=== PATIENT | female | born 1965 | race Caucasian/White ===

== ENCOUNTER 2024-03-25 16:41 | Emergency (ER) | payer OTHER ==
[~2024-03-25 16:41] MED LIST: PHENYLEPHRINE 0.5% NOSE 15ML NAS ONE
[2024-03-25] MEDS ORDERED: MORPHINE 4 MG/ML SYR ONE (17:04)
[2024-03-25] MEDS ORDERED: LABETALOL 20 MG/4ML SYRINGE IV ONE (17:04)
[2024-03-25] MEDS ORDERED: ONDANSETRON 4 MG/2 ML VIAL ONE (17:04)
[2024-03-25 17:36] LABS: Absolute Basophils 0.1 K/uL (0-0.5); Absolute Eosinophils 0.1 K/uL (0-0.5); Absolute Lymphocytes (CBC) 2.2 K/uL (0.7-4.9); Absolute Monocytes 0.9 K/uL (0.1-1.3); Absolute Neutrophil 4.1 K/uL (1.8-8.0); Basophils % 1.1 % (0-1.3); Eosinophils % 1.4 % (0-4.4); Hematocrit 45.5 % (36.0-45.0); Hemoglobin 15.4 g/dL (12.0-15.0); Lymphocytes % 29.5 % (15.3-44.8); MCH 29.9 pg (27.0-35.0); MCHC 33.8 g/dL (32.0-36.0); MCV 88.4 fL (80-100); MPV 9.3 fL (7.6-11.3); Monocytes % 11.8 % (3.3-12.3); Neutrophils % 56.2 % (41.7-73.7); Nucleated Red Blood Cells % 0.1 % (0-0); Platelets 187 thou/uL (152-406); RBC Red Blood Cell Count 5.15 M/uL (3.86-4.86); Red Cell Distribution Width 15.9 % (12.1-15.2)
--- NOTE | 2024-03-25 18:03 | ER ---
Nurse's Notes [facility] Name: Naye Berrios Age: 58 yrs Sex: Female : 1965 Arrival Date: 03/25/2024 Time: 16:41 Bed Treatment Private MD: Diagnosis: Epistaxis Presentation: 03/25 16:45 Chief complaint: Patient states: Spontaneous nose bleed started 30 min [employer]. Coronavirus ll1 screen: Client denies travel out of the [place] in the last 14 days. At this time, the client does not indicate any symptoms associated with coronavirus-19. Ebola Screen: Patient denies travel to an Ebola-affected area in the 21 days before illness onset. Initial Sepsis Screen: Does the patient meet any 2 criteria? No. Patient's initial sepsis screen is negative. Does the patient have a suspected source of infection? No. Patient's initial sepsis screen is negative. Risk Assessment: Do you want to hurt yourself or someone else? Patient reports no desire to harm self or others. Onset of symptoms was March 25, 2024. 16:45 Method Of Arrival: Ambulatory ll1 16:45 Acuity: GEORGE 2 ll1 Historical: - Allergies: 16:45 No Known Allergies; ll1 - PMHx: 16:45 Hypertensive disorder; Hypothyroidism; ll1 - PSHx: 16:45 Appendectomy; ll1 - Immunization history:: Adult Immunizations up to date. - Social history:: Smoking status: Patient denies any tobacco usage or history of. Screenin:50 [facility] ED Fall Risk Assessment (Adult) History of falling in the last 3 months, aa5 including since admission No falls in past 3 months (0 pts) Confusion or Disorientation No (0 pts) Intoxicated or Sedated No (0 pts) Impaired Gait No (0 pts) Mobility Assist Device Used No (0 pt) Altered Elimination No (0 pt) Score/Fall Risk Level 0 - 2 = Low Risk Oriented to surroundings, Maintained a safe environment, Educated pt \T\ family on fall prevention, incl call for assistance when getting out of bed. Abuse screen: Denies threats or abuse. Nutritional screening: No deficits noted. Tuberculosis screening: No symptoms or risk factors identified. Assessment: 16:50 General: Appears uncomfortable, Behavior is calm, cooperative. Pain: Denies pain. aa5 Neuro: Level of Consciousness is awake, alert, obeys commands, Oriented to person, place, time, situation. Cardiovascular: Patient's skin is warm and dry. Respiratory: Airway is patent Respiratory effort is even, unlabored, Respiratory pattern is regular, symmetrical. GI: No signs and/or symptoms were reported involving the gastrointestinal system. : No signs and/or symptoms were reported regarding the genitourinary system. EENT: Nares with bleeding noted on left nare. Derm: Skin is pink, warm \T\ dry. Musculoskeletal: Range of motion: intact in all extremities. 17:00 Reassessment: Rapid Rhino was applied to left nare by Dr. Fine, bleeding slowed down aa5 after rapid rhino was inserted with mild bleeding still noted from left nare. . 17:50 Reassessment: Patient is alert, oriented x 3, equal unlabored respirations, skin aa5 warm/dry/pink. MD at bedside, pt appears more comfortable now. Left nare bleeding significantly controlled by rapid rhino. . 18:12 Reassessment: Patient is alert, oriented x 3, equal unlabored respirations, skin aa5 warm/dry/pink. Vital Signs: 16:45 Resp 17; Weight 72.57 kg; Height 5 ft. 6 in. ; ll1 16:48 BP 160 / 108; Pulse 92; Resp 18 S; Pulse Ox 98% on R/A; aa5 17:18 BP 155 / 105; Pulse 79; Resp 19 S; Pulse Ox 98% on R/A; aa5 17:30 BP 141 / 95; Pulse 78; aa5 17:45 BP 143 / 95; Pulse 77; aa5 18:00 BP 140 / 92; Pulse 78; Resp 16 S; Pulse Ox 98% on R/A; aa5 16:45 Body Mass Index 25.82 (72.57 kg, 167.64 cm) ll1 ED Course: 16:42 Patient arrived in ED. hb 16:43 Wero Fine DO is Attending Physician. sb4 16:45 Arm band placed on Patient placed in an exam room, on a stretcher. ll1 16:46 Triage completed. ll1 16:50 Patient has correct armband on for positive identification. Bed in low position. Call aa5 light in reach. Side rails up X2. Adult w/ patient. Pulse ox on. NIBP on. 16:59 Preethi Galindo, RN is Primary Nurse. aa5 17:16 Inserted saline lock: 22 gauge in left wrist, using aseptic technique. Blood collected. aa5 Flushed with 10 mL NS. 17:38 Attending Physician role handed off by Wero Fine DO sp3 17:38 Bladimir Membreno MD is Attending Physician. sp3 17:59 Wero Fine DO is Attending Physician. ms3 18:02 Joslyn Bañuelos MD is Referral Physician. ms3 18:10 No provider procedures requiring assistance completed. IV discontinued, intact, aa5 bleeding controlled, No redness/swelling at site. Pressure dressing applied. Administered Medications: 17:16 Drug: morphine IVP or IV 4 mg IVP once over 4 mins Route: IVP; Infused Over: 4 mins; aa5 Site: left wrist; 17:20 Follow up: Response: No adverse reaction aa5 17:16 Drug: Ondansetron IVP 4 mg IVP once; over 2 minutes Route: IVP; Site: left wrist; aa5 17:20 Follow up: Response: No adverse reaction aa5 17:18 Drug: Labetalol IV 10 mg IV at calculated rate once Route: IV; Rate: calculated rate; aa5 Site: left wrist; 17:45 Follow up: Response: Blood pressure is lowered aa5 Medication: 17:45 VIS not applicable for this client. aa5 Outcome: 18:02 Discharge ordered by MD. ms3 18:12 Discharged to home ambulatory, with friend, aa5 18:12 Condition: improved 18:12 Discharge instructions given to patient, Instructed on discharge instructions, follow up and referral plans. medication usage, Demonstrated understanding of instructions, follow-up care, medications, Prescriptions given X 2, 18:14 Patient left the ED. hb Signatures: Preethi Galindo RN RN aa5 Naye May RN RN hb Lewis, Lynsay, RN RN ll1 Wero Fine DO DO ms3 Bladimir Membreno MD MD sp3 Faviola Carlton, PA-C PA-C sb4 Corrections: (The following items were deleted from the chart) 18:27 17:50 Reassessment: Patient is alert, oriented x 3, equal unlabored respirations, skin aa5 warm/dry/pink. MD at bedside, pt appears more comfortable now. . aa5
--- NOTE | 2024-03-25 18:03 | EDPHYS ---
Physician Documentation [facility] Name: Naye Berrios Age: 58 yrs Sex: Female : 1965 Arrival Date: 03/25/2024 Time: 16:41 Bed Treatment Private MD: ED Physician Wero Fine HPI: 03/25 17:02 This 58 yrs old Female presents to ER via Ambulatory with complaints of Nose Bleed. ms3 17:02 58-year-old female with past medical history of hypertension, hypothyroidism presents ms3 to the emergency department for epistaxis. Patient states she was shopping at [employer] when her nose began bleeding. Patient has applied pressure and applied 2 different tampons to her nose without cessation of the bleeding.. Historical: - Allergies: 16:45 No Known Allergies; ll1 - PMHx: 16:45 Hypertensive disorder; Hypothyroidism; ll1 - PSHx: 16:45 Appendectomy; ll1 - Immunization history:: Adult Immunizations up to date. - Social history:: Smoking status: Patient denies any tobacco usage or history of. ROS: 17:02 Constitutional: Negative for fever, and chills. Cardiovascular: Negative for chest ms3 pain, and palpitations. Respiratory: Negative for shortness of breath, cough, wheezing, and pleuritic chest pain, Abdomen/GI: Negative for abdominal pain, nausea, vomiting, diarrhea, and constipation, MS/Extremity: Negative for injury and deformity, Skin: Negative for injury, rash, and discoloration, 17:02 ENT: Positive for nose bleed, Exam: 17:02 Constitutional: This is a well developed, well nourished patient who is awake, alert, ms3 and in no acute distress. Chest/axilla: Normal chest wall appearance and motion. Nontender with no deformity. Cardiovascular: Regular rate and rhythm with a normal S1 and S2. No gallops, murmurs, or rubs. Normal PMI, no JVD. No pulse deficits. Respiratory: Lungs have equal breath sounds bilaterally, clear to auscultation and percussion. No rales, rhonchi or wheezes noted. No increased work of breathing, no retractions or nasal flaring. 17:02 ENT: Nose: bleeding, is seen from the left nare, and is profuse, Vital Signs: 16:45 Resp 17; Weight 72.57 kg; Height 5 ft. 6 in. ; ll1 16:48 BP 160 / 108; Pulse 92; Resp 18 S; Pulse Ox 98% on R/A; aa5 17:18 BP 155 / 105; Pulse 79; Resp 19 S; Pulse Ox 98% on R/A; aa5 17:30 BP 141 / 95; Pulse 78; aa5 17:45 BP 143 / 95; Pulse 77; aa5 18:00 BP 140 / 92; Pulse 78; Resp 16 S; Pulse Ox 98% on R/A; aa5 16:45 Body Mass Index 25.82 (72.57 kg, 167.64 cm) ll1 MDM: 16:59 Medical Screening Exam initiated ms3 17:02 Differential diagnosis: epistaxis r/t trauma, spontaneous epistaxis. Management of ms3 patient was discussed with the following: Customer Relations Advisor: Discussed case with Dr Bañuelos. She would like 7.5 cm Nasal Pack placed and saline to be used for inflation, at least 5 ml. Pain control, bp control. Observe for 1-1.5 hours. . 18:09 Data reviewed: vital signs, nurses notes, and as a result, I will discharge patient. I ms3 considered the following discharge prescriptions or medication management in the emergency department Medications were administered in the Emergency Department. See MAR. Counseling: I had a detailed discussion with the patient and/or guardian regarding the historical points, exam findings, and any diagnostic results supporting the discharge/admit diagnosis, lab results, the need for outpatient follow up, to return to the emergency department if symptoms worsen or persist or if there are any questions or concerns that arise at home. Special discussion: I discussed with the patient/guardian in detail that at this point there is no indication for admission to the hospital. It is understood, however, that if the symptoms persist or worsen the patient needs to return immediately for re-evaluation. ED course: Discussed case with Dr Bañuelos and patient to follow up at 9 am on Thursday for rhino rocket removal. Discussed plan with patient. She understands/ agrees with plan. Bleeding has stopped. Patient is a/ox4, in nad, non-toxic appearing. Return precautions discussed to include epistaxis, fevers, headache, worsening symptoms, or any other concerns.. 03/25 17:01 Order name: CBC with Diff; Complete Time: 17:40 ms3 Administered Medications: 17:16 Drug: morphine IVP or IV 4 mg IVP once over 4 mins Route: IVP; Infused Over: 4 mins; aa5 Site: left wrist; 17:20 Follow up: Response: No adverse reaction aa5 17:16 Drug: Ondansetron IVP 4 mg IVP once; over 2 minutes Route: IVP; Site: left wrist; aa5 17:20 Follow up: Response: No adverse reaction aa5 17:18 Drug: Labetalol IV 10 mg IV at calculated rate once Route: IV; Rate: calculated rate; aa5 Site: left wrist; 17:45 Follow up: Response: Blood pressure is lowered aa5 Disposition Summary: 03/25/24 18:02 Discharge Ordered Notes: Location: Home ms3 Condition: Stable ms3 Diagnosis - Epistaxis ms3 Followup: ms3 - With: Joslyn Bañuelos MD - When: 2 - 3 days - Reason: Recheck today's complaints Discharge Instructions: - Discharge Summary Sheet ms3 - Nosebleed, Adult ms3 Forms: - Medication Reconciliation Form ms3 - Antibiotic Education ms3 - Prescription Opioid Use ms3 - Patient Portal Instructions ms3 - Leadership Thank You Letter ms3 Prescriptions: - acetaminophen-codeine 300-30 mg Oral tablet - take 1 tablet ORAL route every 6 hours as needed for pain; 18 tablet; Refills: ms3 0, Product Selection Permitted - Cephalexin 250 mg Oral Capsule - take 1 capsule ORAL route every 8 hours for 10 days; 30 capsule; Refills: 0, ms3 Product Selection Permitted Signatures: Dispatcher [employer] Preethi Croft RN RN aa5 Rena Everett RN RN ll1 Wero Fine DO DO ms3 Bladimir Membreno MD MD sp3
[2024-03-25 18:38] VITALS: O2SAT 98
[2024-03-25 18:51] VITALS: BP 143/95
== END 2024-03-25 18:14 | disposition home or self-care (01) ==
LOC: ER 16:41
DX: R04.0 Epistaxis (principal); I10 Essential (primary) hypertension; E03.9 Hypothyroidism, unspecified
CPT/HCPCS: 85025; 36415; 96375; 96374; 99284; J2405